=== PATIENT | female | born 1950 | race Caucasian/White ===

== ENCOUNTER 2018-09-10 13:54 | Emergency (ER) | payer MEDICARE, OTHER, BC ==
[2018-09-10] MEDS: ACETAMINOPHEN 500 MG TAB PO (16:45)
[2018-09-10] MEDS: KETOROLAC 30 MG INJ IM (16:45)
[2018-09-10] MEDS: traMADol 50 MG TAB PO (16:46)
== END 2018-09-10 18:57 | disposition home or self-care (01) ==
LOC: FTE 13:54
DX: S60.222A Contusion of left hand, initial encounter (principal); W18.39XA Other fall on same level, initial encounter; Y92.9 Unspecified place or not applicable
CPT/HCPCS: 29125; 73110-LT; 73130-LT; 96372; 99284-25